=== PATIENT | male | born 1980 | race Caucasian/White ===

== ENCOUNTER 2017-09-24 10:10 | Emergency (ER) | payer OTHER ==
[2017-09-24] MEDS: ONDANSETRON (ODT) 4 MG TAB ODT (10:49)
[2017-09-24] MEDS: HYDROCODONE/APAP (10/325) TAB PO (10:50)
[2017-09-24] MEDS: IBUPROFEN 600 MG TAB PO (13:27)
[2017-09-24] MEDS: RIVAROXABAN 15 MG TABLET PO (13:27)
== END 2017-09-24 13:45 | disposition home or self-care (01) ==
LOC: FTE 10:10
DX: I82.401 Acute embolism and thrombosis of unspecified deep veins of right lower extremity (principal)
CPT/HCPCS: 93926; 93971; 99285-25

== ENCOUNTER 2017-09-30 17:10 | Emergency (ER) | payer OTHER ==
[2017-09-30] MEDS: SOD CHLORIDE 0.9% 1,000 ML IV (21:45)
[2017-09-30] MEDS: VANCOMYCIN 1.5 GM in SOD CHLORIDE 0.9% 250 ML IVPB (22:28)
[2017-09-30 22:32] LABS: HEMATOCRIT 43.6 % (42.0-52.0); HEMOGLOBIN 14.5 g/dl (14.0-18.0); MEAN CORPUSCULAR HGB CONC 33.3 g/dl (32.0-37.0); MEAN CORPUSCULAR VOLUME 84.2 fl (82.0-101.0); PLATELET COUNT 242 10^3/UL (140-415); RED BLOOD COUNT 5.18 10^6/ul (4.70-6.10); RED CELL DISTRIBUTION WIDTH 13.2 % (11.5-14.5)
[2017-09-30 22:32] LABS: WHITE BLOOD COUNT 4.8 10^3/ul (4.8-10.8)
[2017-09-30 22:34] LABS: ADD MAN DIFF? YES
[2017-09-30 22:46] LABS: INR 1.12; PROTIME 14.6 Sec (11.9-14.9); PT RATIO 1.1
[2017-09-30 22:47] LABS: PARTIAL THROMBOPLASTIN TIME 34.1 Sec (25.0-35.0)
[2017-09-30 22:51] LABS: ALANINE AMINOTRANSFERASE 50 IU/L (13-69); ALBUMIN 4.2 g/dl (3.3-4.9); ALBUMIN/GLOBULIN RATIO 1.27; ALKALINE PHOSPHATASE 65 IU/L (42-121); ANION GAP 15 (8-16); ASPARTATE AMINO TRANSFERASE 52 IU/L (15-46); BILIRUBIN,INDIRECT 1.2 mg/dl (0-1.1); BILIRUBIN,TOTAL 1.2 mg/dl (0.2-1.3); BLOOD UREA NITROGEN 24 mg/dl (7-20); CALCIUM 9.5 mg/dl (8.4-10.2); CARBON DIOXIDE 31 mmol/L (21-31); CHLORIDE 101 mmol/L (97-110); CREATININE 1.03 mg/dl (0.61-1.24); GLUCOSE 88 mg/dl (70-220); POTASSIUM 3.8 mmol/L (3.5-5.1); SODIUM 143 mmol/L (135-144); TOTAL PROTEIN 7.5 g/dl (6.1-8.1)
[2017-09-30 23:02] LABS: ANISOCYTOSIS 2+ (0-0); BAND NEUTROPHILS % (M) 1 % (0-4); EOSINOPHILS % (M) 3 % (0-7); GIANT THROMBO% (M) 1 % (0-0); LYMPHOCYTES #M 0.8 10^3/ul (0.8-2.9); LYMPHOCYTES % (M) 18 % (15-51); MICROCYTOSIS 2+ (0-0); MONOCYTE #M 0.5 10^3/ul (0.3-0.9); MONOCYTES % (M) 12 % (0-11); PLATELET ESTIMATE NORMAL; POIKILOCYTOSIS 1+ (0-0); REACTIVE LYMPHOCYTES #M 0.4 10^3/ul (0.0-0.0); REACTIVE LYMPHOCYTES% (M) 10 % (0-0); SEG NEUT #M 2.7 10^3/ul (1.6-7.5); SEGMENTED NEUTROPHILS (M) % 56 % (39-77); SMUDGE%M 8 % (0-0)
[2017-10-01] MEDS: DIPHENHYDRAMINE 25 MG CAP PO (00:01)
== END 2017-10-01 00:12 | disposition home or self-care (01) ==
LOC: FTE 10-01 00:12
DX: T81.4XXA Infection following a procedure, initial encounter (principal); Y82.8 Other medical devices associated with adverse incidents; Z79.01 Long term (current) use of anticoagulants
CPT/HCPCS: 36415; 73700; 80053; 85025; 85610; 85730; 96374; 99285-25

== ENCOUNTER 2017-10-03 11:45 | Inpatient (IN) | payer OTHER ==
[2017-10-03 12:47] LABS: ADD MAN DIFF? NO
[2017-10-03 12:51] LABS: BASOPHILS % 0.4 % (0.0-2.0); EOSINOPHILS # 0.2 10^3/ul (0.0-0.5); EOSINOPHILS % 3.8 % (0.0-7.0); HEMATOCRIT 47.4 % (42.0-52.0); HEMOGLOBIN 15.7 g/dl (14.0-18.0); LYMPHOCYTES # 1.4 10^3/ul (0.8-2.9); LYMPHOCYTES % 30.6 % (15.0-51.0); MEAN CORPUSCULAR HEMOGLOBIN 27.8 pg (29.0-33.0); MEAN CORPUSCULAR HGB CONC 33.1 g/dl (32.0-37.0); MEAN PLATELET VOLUME 9.5 fl (7.4-10.4); MONOCYTE # 0.8 10^3/ul (0.3-0.9); MONOCYTES % 18.2 % (0.0-11.0); NEUTROPHIL # 2.1 10^3/ul (1.6-7.5); NEUTROPHILS % 46.8 % (39.0-77.0); PLATELET COUNT 261 10^3/UL (140-415); RED BLOOD COUNT 5.64 10^6/ul (4.70-6.10); RED CELL DISTRIBUTION WIDTH 12.7 % (11.5-14.5)
[2017-10-03 12:51] LABS: WHITE BLOOD COUNT 4.5 10^3/ul (4.8-10.8)
[2017-10-03 13:13] LABS: INR 1.41; PROTIME 17.5 Sec (11.9-14.9); PT RATIO 1.4
[2017-10-03] MEDS: VANCOMYCIN 1.75 GM in SOD CHLORIDE 0.9% 500 ML IVPB (13:24)
[2017-10-03 13:27] LABS: ANION GAP 21 (8-16); BLOOD UREA NITROGEN 26 mg/dl (7-20); C-REACTIVE PROTEIN 0.7 mg/dl (0.0-0.9); CALCIUM 9.5 mg/dl (8.4-10.2); CARBON DIOXIDE 25 mmol/L (21-31); CHLORIDE 101 mmol/L (97-110); CREATININE 0.98 mg/dl (0.61-1.24); GLUCOSE 103 mg/dl (70-220); POTASSIUM 4.4 mmol/L (3.5-5.1); SODIUM 143 mmol/L (135-144)
[2017-10-03] MEDS ORDERED: ONDANSETRON 4 MG INJ IV (14:00)
[2017-10-03] MEDS ORDERED: ACETAMINOPHEN 325 MG TAB PO (14:00)
[2017-10-03 14:12] LABS: ERYTHROCYTE SEDIMENTATION RATE 6 mm/Hr (0-15)
[2017-10-03] MEDS ORDERED: VANCOMYCIN IV PER PHARMACY XX (16:30)
[2017-10-03] MEDS ORDERED: NACL 0.9% 3 ML SYG IV (16:30)
[2017-10-03] MEDS ORDERED: morphine 2 MG INJ IV (16:30)
[2017-10-03] MEDS: PIPER-TAZO 3.375 GM IV (PMX) 100 ML IVPB ×2 (18:20→22:17)
[2017-10-03] MEDS: HYDROCODONE/APAP (5/325) TAB PO (18:38)
[2017-10-03] MEDS ORDERED: RIVAROXABAN 15 MG TABLET PO (21:00)
[2017-10-04] MEDS: VANCOMYCIN 1.5 GM in SOD CHLORIDE 0.9% 250 ML IVPB ×2 (02:48→12:35)
[2017-10-04] MEDS: HYDROCODONE/APAP (5/325) TAB PO ×2 (04:16→07:59)
[2017-10-04] MEDS: PIPER-TAZO 3.375 GM IV (PMX) 100 ML IVPB ×3 (05:20→22:12)
[2017-10-04 06:22] LABS: ADD MAN DIFF? NO
[2017-10-04 06:41] LABS: BASOPHILS % 0.5 % (0.0-2.0); EOSINOPHILS # 0.2 10^3/ul (0.0-0.5); HEMOGLOBIN 14.5 g/dl (14.0-18.0); LYMPHOCYTES # 1.5 10^3/ul (0.8-2.9); LYMPHOCYTES % 39.5 % (15.0-51.0); MEAN CORPUSCULAR HEMOGLOBIN 27.9 pg (29.0-33.0); MEAN CORPUSCULAR VOLUME 84.6 fl (82.0-101.0); MEAN PLATELET VOLUME 9.8 fl (7.4-10.4); MONOCYTE # 0.8 10^3/ul (0.3-0.9); MONOCYTES % 21.6 % (0.0-11.0); NEUTROPHIL # 1.3 10^3/ul (1.6-7.5); NEUTROPHILS % 33.1 % (39.0-77.0); PLATELET COUNT 244 10^3/UL (140-415); RED CELL DISTRIBUTION WIDTH 13.1 % (11.5-14.5)
[2017-10-04 06:41] LABS: WHITE BLOOD COUNT 3.8 10^3/ul (4.8-10.8)
[2017-10-04 07:16] LABS: ALANINE AMINOTRANSFERASE 48 IU/L (13-69); ALBUMIN 3.7 g/dl (3.3-4.9); ALBUMIN/GLOBULIN RATIO 1.23; ALKALINE PHOSPHATASE 65 IU/L (42-121); ANION GAP 15 (8-16); ASPARTATE AMINO TRANSFERASE 48 IU/L (15-46); BILIRUBIN,INDIRECT 0.6 mg/dl (0-1.1); BILIRUBIN,TOTAL 0.6 mg/dl (0.2-1.3); BLOOD UREA NITROGEN 27 mg/dl (7-20); CARBON DIOXIDE 27 mmol/L (21-31); CHLORIDE 105 mmol/L (97-110); CREATININE 1.05 mg/dl (0.61-1.24); GLUCOSE 98 mg/dl (70-220); POTASSIUM 4.2 mmol/L (3.5-5.1); SODIUM 143 mmol/L (135-144); TOTAL PROTEIN 6.7 g/dl (6.1-8.1)
[2017-10-05 02:04] LABS: VANCOMYCIN,TROUGH 9.2 ug/ml (10.0-20.0)
[2017-10-05] MEDS: VANCOMYCIN 1.5 GM in SOD CHLORIDE 0.9% 250 ML IVPB ×2 (02:23→13:49)
[2017-10-05] MEDS: HYDROCODONE/APAP (5/325) TAB PO (02:30)
[2017-10-05] MEDS: PIPER-TAZO 3.375 GM IV (PMX) 100 ML IVPB ×2 (05:21→13:03)
[2017-10-06] MEDS ORDERED: VANCOMYCIN 1.75 GM in SOD CHLORIDE 0.9% 500 ML IVPB (01:00)
== END 2017-10-05 18:25 | disposition home or self-care (01) | DRG 603 ==
LOC: E/R 11:45 → MS2 13:57
DX: L03.115 Cellulitis of right lower limb (principal); L76.82 Other postprocedural complications of skin and subcutaneous tissue; Y83.8 Other surgical procedures as the cause of abnormal reaction of the patient, or of later complication, without mention of misadventure at the time of the procedure; M25.561 Pain in right knee
CPT/HCPCS: 36415; 71045; 73562; 80048; 80053; 80202; 85025; 85610; 85651; 85730; 86140; 86850; 86900; 86901; 87040; 93005; 93971; 96365; 99285-25